=== PATIENT | male | born 1995 | race Caucasian/White ===

== ENCOUNTER 2017-09-26 01:08 | Emergency (ER) | payer SELFPAY ==
[2017-09-26] MEDS ORDERED: ceFAZolin 1 GM VIAL(*) 1 GM in NS 0.9% 50 ML* 50 ML IVPB ONE (02:18)
[2017-09-26] MEDS ORDERED: Tetan/Diph/Pertus SYR(Tdap)* 0.5 ML SYR(BOOSTRIX) use SYR IM ONE (02:21)
--- NOTE | 2017-09-26 02:27 | ED ---
Laceration/Wound HPI - HPI Summary HPI Summary: 22M presents with right hand laceration today. He punched a window and sustained a laceration to the ulnar aspect of his hand and small laceration with potential foreign body to palmar aspect of right hand. He is left handed. 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 He denies any numbness or tingling. He is not able to fully extend pinky finger. Area continues to bleed. he has previous dislocation of pinky there so has deformity at baseline. Has had some ETOH tonight. - History of Current Complaint Stated Complaint: RT HAND LACS Time Seen by Provider: 09/26/17 02:15 Pain Intensity: 0 - Allergy/Home Medications Allergies/Adverse Reactions: Allergies Allergy/AdvReac Type Severity Reaction Status Date / Time No Known Allergies Allergy Verified 09/26/17 02:20 PMH/Surg Hx/FS Hx/Imm Hx Endocrine/Hematology History: Denies: Hx Anticoagulant Therapy Cardiovascular History: Denies: Hx Hypertension Infectious Disease History: Yes Infectious Disease History: Denies: Traveled Outside the [place] in Last 30 Days - Family History Known Family History: Negative: Diabetes - Social History Alcohol Use: Weekly Substance Use Type: Reports: None Smoking Status (MU): Never Smoked Tobacco Review of Systems Negative: Fever Negative: Chest Pain Negative: Shortness Of Breath Positive: Edema - right hand Positive: Other - laceration right hand All Other Systems Reviewed And Are Negative: Yes Physical Exam Triage Information Reviewed: Yes Vital Signs On Initial Exam: Initial Vitals Temp Pulse Resp BP Pulse Ox 98.3 F 86 18 126/72 99 09/26/17 01:15 09/26/17 01:15 09/26/17 01:15 09/26/17 01:15 09/26/17 01:15 Vital Signs Reviewed: Yes Completion Of Physical Exam Limited Due To: Level 5 Appearance: Positive: Well-Appearing Skin: Positive: Warm, Dry, Other - 1cm laceration palm of right hand, 6cm by 3cm by 3/4cm deep laceration of lateral ulnar aspect of right hand that continues to bleed Head/Face: Positive: Normal Head/Face Inspection Eyes: Positive: Normal, Conjunctiva Clear Respiratory/Lung Sounds: Positive: Clear to Auscultation, Breath Sounds Present Cardiovascular: Positive: Normal, RRR Musculoskeletal: Positive: Strength/ROM Intact - unable to full extend right pinky finger, Other - capillary refill<2 secs, sensation grossly intact, Neurological: Positive: Normal - Luda Coma Scale Coma Scale Total: 15 Diagnostics - Vital Signs Vital Signs Temp Pulse Resp BP Pulse Ox 09/26/17 01:15 98.3 F 86 18 126/72 99 - Laboratory Result Diagrams: 09/26/17 02:25 Lab Statement: Any lab studies that have been ordered have been reviewed, and results considered in the medical decision making process. - Radiology hand Xray Interpretation: No Acute Changes - no fx, potential foreign body in middle of palmar aspect of hand Radiology Interpretation Completed By: ED Physician Laceration Repair Course/Dx - Course Course Of Treatment: 22M presents with right hand laceration today. He punched a window and sustained a laceration to the ulnar aspect of his hand and small laceration with potential foreign body to palmar aspect of right hand. He is left handed. 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 He denies any numbness or tingling. He is not able to fully extend Area continues to bleed. he has previous dislocation of pinky there so has deformity at baseline. on exam has large clot in wound with potential tendon visualized. has 5cm by 3cm laceration near right pinky. 1cm laceration on palmar aspect of hand. xray read no fracture. had dr cardenas examine patient and see recommends calling ortho. dr cardenas called ortho and dr kim is in to evaulate patient. patient signed out to dr cardenas pending laceration repair by dr kim. gave tetanus and dose of ancef. - Differential Dx Differental Diagnoses: Abrasion, Avulsion, Laceration - Clinical Impression Provider Diagnoses: Injury of right hand, Laceration of right hand Discharge - Discharge Plan Condition: Good Disposition: OTHER Discharge Disposition Comment: signed out to dr cardenas pending laceration repair
[2017-09-26 02:54] LABS: Hematocrit 44 % (42-52); Hemoglobin 14.8 g/dl (14.0-18.0); Mean Corpuscular HGB Conc 34 g/dl (31-36); Mean Corpuscular Hemoglobin 28 pg (27-31); Mean Corpuscular Volume 84 fL (80-94); Mean Platelet Volume 9 um3 (7.4-10.4); Red Cell Distribution Width 13 % (10.5-15); White Blood Count 7.9 10^3/ul (3.5-10.8)
[2017-09-26 03:11] LABS: Albumin 4.8 g/dL (3.2-5.2); BUN/Creatinine Ratio 16.7 (8-20); Calcium 9.7 mg/dL (8.6-10.3); EGFR African American 128.4 (>60); EGFR Non-African American 99.9 (>60); Globulin 2.6 g/dL (2-4); Potassium 3.5 mmol/L (3.5-5.0); Total Bilirubin 0.4 mg/dL (0.2-1.0); Total Protein 7.4 g/dL (6.4-8.9)
[2017-09-26] MEDS ORDERED: Lidocain 1% EPI 1:100,000 * 30 ML MDV INJ ONE (03:26)
[2017-09-26] MEDS ORDERED: Lidocaine 2% EPI 1:200000 MPF* 20 ML VIAL ONE (03:28)
[2017-09-26 04:49] VITALS: BP 129/69
--- NOTE | 2017-09-26 06:01 | CONS ---
ER CONSULTATION REPORT: DATE OF CONSULT: 09/26/17 - EMERGENCY DEPT. HISTORY OF PRESENT ILLNESS: Wolfgang Hi, age 22, is a left-hand dominant, 22- year-old at [employer]. He was intoxicated and punched his hand through a window. He is in the emergency room with a transverse laceration along his 5th metatarsal base area dorsal ulnar right nondominant hand. The patient is otherwise healthy. He takes methylphenidate. He has no drug allergies. His only previous surgery is an eye strabismus procedure. He denies blood pressure issues, any history of cardiac issues. No asthma. No GI issues. No renal issues. No emotional issues. On examination, Wolfgang is clearly intoxicated, but is awake and able to give me details about his past medical history, although he is vague about the nature of the injury itself, unable to tell me when this happened. He is a healthy- appearing gentleman and otherwise other than the hand laceration, in no acute distress. He is, as stated above, left hand dominant; this is a right hand involved. He has a 5-cm laceration coarsely more or less transversely around the dorsal ulnar hand, roughly at the mid portion of the 5th metatarsal. It courses from about the area of the dorsal fourth metatarsal around to the hypothenar musculature. It is clean. There is no debris. It does not have any exposed bone. The both sides of the flap appeared viable. He is able to extend his fifth digit, but is numb at the ulnar and palmar side of the fifth finger. The radiographs do not show any abnormality of the bone. No foreign body noted. IMPRESSION: Wolfgang has what appears to be a nerve injury to the 5th digit. It appears that the tendons are intact. The wound itself is clean and will be irrigated and closed primarily tonight in the emergency room and splinted and then he will be referred to the hand service for exploration and possible nerve repair electively. [id number]/[facility] #: [id number] CLFIF
--- NOTE | 2017-09-26 07:49 | RAD ---
INDICATION: Multiple lacerations "involving glass" to the right hand COMPARISON: None. TECHNIQUE: 3 views of the right hand were obtained. FINDINGS: The adequately corticated bones are in normal alignment. No significant focal osseous abnormality or fracture is seen. Joint spaces appear maintained. There is no radiographically apparent foreign body in the subcutaneous tissue. IMPRESSION: Normal right hand radiograph. If the patient's symptoms persist, follow-up imaging is recommended.
--- NOTE | 2017-09-26 15:49 | ED ---
I, Charlie Bajwa, scribed for Nishi Gonsalez MD on 09/26/17 at 0234 . Progress - Progress Note Progress Note: 22yo male who presents to ED with right hand laceration after punching glass wall while intoxicated. Pt was seen my Nikkie TOBAR and was signed out at the end of the shift. Exam: Large laceration of7cm x3cm at the mid dorsal lateral aspect on the right hand at the base of the 5th metacarpal. Full flexion intact but unable to fully extend at the PIP joint. Probable tendon visualized in the wound; large area of the clot in the wound; vigorous venous bleeding noted. 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 - Results/Orders Results/Orders: Right Hand XR: No Fx noted. No FB noted. Course/Dx - Course Course Of Treatment: Consulted Dr. Zamora (Ortho) at [address] Zamora will come into ED to evaluate the pt's hand. Dr. Zamora stated nerve damage likely to right hand, but can be repaired and evaluated further electively. Recommends wound closure and ulnar gutter splint and definite f/u with Dr. Vega. Pt sutured and splinted by EKATERINA Diane - Diagnoses Provider Diagnoses: Injury of right hand, Laceration of right hand, Alcohol intoxication - Provider Notifications Discussed Care Of Patient With: Augustus Zamora Time Discussed With Above Provider: 02:35 Instructed by Provider To: Will See In ED The documentation as recorded by the scribeGarett Benjamin accurately reflects the service I personally performed and the decisions made by me, Nishi Gonsalez MD.
== END 2017-09-26 04:48 | disposition home or self-care (01) ==
LOC: ED 01:08
DX: S69.91XA Unspecified injury of right wrist, hand and finger(s), initial encounter (principal); S61.411A Laceration without foreign body of right hand, initial encounter; F10.129 Alcohol abuse with intoxication, unspecified; W22.01XA Walked into wall, initial encounter; Y93.9 Activity, unspecified; Y92.9 Unspecified place or not applicable
CPT/HCPCS: 36415; 80053; 85025; 85610; 85730; 90715; 96372; 99283; J0690

== ENCOUNTER → 2017-10-01 10:29 | Day surgery (SDC) | payer OTHER ==
[~2017-10-01 10:29] MED LIST: Buffered Lidocaine 0.9% SYRIN* 5 ML/SYR SYRINGE INTRADERM ONE; Buffered Lidocaine 0.9% SYRIN* 5 ML/SYR SYRINGE ONE; Bupivacaine 0.25% SDV* 30 ML ONE; Dexamethasone IV* 4 MG/ML 1 ML (4 MG) IV SLOW PU ONE; Dexamethasone IV* 4 MG/ML 1 ML (4 MG) ONE; Famotidine IV* 10 MG/ML 2 ML (20 mg) IV ONE; Famotidine IV* 10 MG/ML 2 ML (20 mg) ONE; HYDROcodone/ACETAMIN 5-325 MG* 1 TAB PO PRN; Ketorolac INJ* 30 MG/ML 1 ML VIAL ONE; Lidocaine 2% PF * 5 ML VIAL ONE; Midazolam* 1 MG/ML 5 ML VIAL (5 MG) ONE; Ondansetron INJ* 2 MG/ML VIAL ONE; PROCHLORPERAZINE INJ 5 MG/ML 2 ML VIAL IV PRN; Propofol* 10 MG/ML 20 ML BTL IV PUSH ONE; ceFAZolin 2 GM PREMIX (*) 2 GM/50 ML BAG IVPB ONE; fentaNYL* 50 MCG/ML 2 ML VIAL (100 MCG VIAL) ONE; oxyCODONE/Acetamin 5/325 MG* TAB ONE
[2017-10-01] MEDS: fentaNYL* 50 MCG/ML 2 ML VIAL (100 MCG VIAL) IV PRN ×2 (17:01→17:25)
[2017-10-01] MEDS: oxyCODONE/Acetamin 5/325 MG* TAB PO PRN ×2 (17:03→17:04)
[2017-10-01 19:55] VITALS: BP 132/82
--- NOTE | 2017-10-02 05:04 | OP ---
DATE OF OPERATION: 10/01/17 [facility] DATE OF : 89 SURGEON: Augustus Vega MD BALLISTICS PROFESSOR: EKATERINA Bird. An assistant quality manager was needed for the case to aid in retraction and positioning of the arm. ANESTHESIOLOGIST: Dr. Collins. ANESTHESIA: General. PRE-OP DIAGNOSIS: Deep penetrating wound, right ulnar hand. POST-OP DIAGNOSIS: Deep penetrating wound, right ulnar hand with retained glass. OPERATIVE PROCEDURES: 1. Exploration of penetrating wound, right hand. 2. Irrigation and debridement of skin, subcutaneous tissue, and fascia and muscle. 3. Removal of foreign body (glass). INDICATIONS: Wolfgang is 22. He lacerated deeply the right ulnar side of his hand when he went through a window. He was seen in the emergency room and closed loosely by my partner. There was some concern for nerve and tendon injury. When I saw him in the office, he had intact sensation, but it clearly was abnormal and he was able to fire his intrinsics and cross his fingers, but it was very weak compared to the contralateral side. I had talked to him about exploring the ulnar nerve and repairing the potential partial laceration and potentially placing a nerve wrap. He had wanted to proceed. ESTIMATED BLOOD LOSS: 5 mL. COMPLICATIONS: None. FINDINGS: The ulnar nerve was a little contused, but intact and not lacerated. The extensor and flexor tendons were similarly intact. The hypothenar muscle was transected down to the bone ulnarly. This was not repairable. There was some retained glass in the wound. DESCRIPTION OF PROCEDURE: Wolfgang was seen in the preoperative holding area. The correct site, side, and procedure were identified. He came back to the operating room. The arm was prepped and draped in the usual fashion. A time- out was performed. I began by extending the volar margin of the traumatic wound proximally and lined with the pisiform and FCU tendon. Dissection was carried down, the fascia was opened just on the radial side of the FCU. The ulnar nerve vascular bundle was identified. The ulnar nerve was identified proximally in a healthy bed of tissue. This was then traced out distally until it branched and became the deep branch of the ulnar nerve and the digital sensory nerves. These were all intact. There was some contusion on the nerve and some hemorrhagic areas in Guyon's canal, but nothing was lacerated. The flexor tendons of the small finger were intact. I went ahead and debrided off the frayed and ragged skin edges and debrided the subcutaneous tissue and muscle fibers and fascia where the hypothenar muscles have been transected. I then turned the head over and extended the traumatic wound over the dorsal hand. I went ahead and inspected the extensor tendons. The 5th dorsal compartment extensor tendons were intact. It had gone distal just enough to avoid the 6th dorsal compartment ECU tendon. I went ahead and irrigated and debrided out this wound. There was a couple of pieces of glass that were removed. The wound was again irrigated, the skin was closed with 4-0 nylon suture. The area was infiltrated with 0.25% plain Marcaine. Wound was dressed with Xeroform, 4x4, sterile Webril, and a cockup wrist splint was applied. He was taken to the recovery room in stable condition. Tourniquet had been used throughout the case. [id number]/[facility] #: [id number] CLIFF
== END | disposition home or self-care (01) ==
LOC: OR 10:29
PROVIDERS: ATTEND Orthopaedic Surgery Hand Surgery
DX: S61.441A Puncture wound with foreign body of right hand, initial encounter (principal); W25.XXXA Contact with sharp glass, initial encounter; Y92.9 Unspecified place or not applicable; F17.200 Nicotine dependence, unspecified, uncomplicated
CPT/HCPCS: 88300; A9270-GY; J0690; J1100; J1885; J2250; J2405; J2704; J3010

== ENCOUNTER 2018-10-29 10:40 | Emergency (ER) | payer OTHER ==
--- NOTE | 2018-10-29 11:05 | ED ---
Laceration/Wound HPI - HPI Summary HPI Summary: Patient is a 23-year-old male who presents emergency department for laceration to right middle digit of hand that occurred just prior to arrival. Patient states he was cutting an avocado when the knife slipped and cut the tip of his third finger. Patient has no past medical history. Immunizations are up-to- date. Patient states the wound has been bleeding profusely. Symptoms are mild in severity. No current modifying factors. - History of Current Complaint Stated Complaint: FINGER LAC Time Seen by Provider: 10/29/18 11:03 Hx Obtained From: Patient Pain Intensity: 6 - Allergy/Home Medications Allergies/Adverse Reactions: Allergies Allergy/AdvReac Type Severity Reaction Status Date / Time No Known Allergies Allergy Verified 10/01/17 12:06 PMH/Surg Hx/FS Hx/Imm Hx Previously Healthy: Yes Endocrine/Hematology History: Denies: Hx Anticoagulant Therapy Cardiovascular History: Denies: Hx Hypertension Sensory History: Reports: Hx Contacts or Glasses - INSTRUCTS GIVEN Denies: Hx Hearing Aid Opthamlomology History: Reports: Hx Contacts or Glasses - INSTRUCTS GIVEN Neurological History: Reports: Hx Migraine - MONTHLY- TREATS WITH EXCEDRIN - Surgical History Surgery Procedure, Year, and Place: CORREECTION OF LAZY EYE AROUND 8 YEARS AGO Hx Anesthesia Reactions: No Infectious Disease History: No Infectious Disease History: Denies: Traveled Outside the [place] in Last 30 Days - Family History Known Family History: Positive: Non-Contributory Negative: Diabetes - Social History Occupation: Student Lives: Dormitory/Roommates Alcohol Use: Weekly Alcohol Amount: 5 DRINKS PER WEEK Substance Use Type: Reports: None Smoking Status (MU): Former Smoker Amount Used/How Often: CHEWING TOBACCO X 1-2 YEARS Have You Smoked in the Last Year: No Review of Systems Positive: Other - laceration to 3rd digit of left hand All Other Systems Reviewed And Are Negative: Yes Physical Exam Triage Information Reviewed: Yes Vital Signs On Initial Exam: Initial Vitals Temp Pulse Resp BP Pulse Ox 98.4 F 94 18 136/77 100 10/29/18 10:49 10/29/18 10:49 10/29/18 10:49 10/29/18 10:49 10/29/18 10:49 Vital Signs Reviewed: Yes Appearance: Positive: Well-Appearing - Pt. sitting on bed in NAD. Bandage on right 3rd digit saturated in blood. Skin: Positive: Warm, Dry Head/Face: Positive: Normal Head/Face Inspection Eyes: Positive: Normal, EOMI Neck: Positive: Supple Musculoskeletal: Positive: Other - Small but deep avulsion to the distal nailbed of 3rd digit of right hand. Moderate active bleeding. Neurological: Positive: Normal, CN Intact II-III Psychiatric: Positive: Affect/Mood Appropriate Diagnostics - Vital Signs Vital Signs Temp Pulse Resp BP Pulse Ox 10/29/18 10:49 98.4 F 94 18 136/77 100 - Laboratory Lab Statement: Any lab studies that have been ordered have been reviewed, and results considered in the medical decision making process. Laceration Repair Course/Dx - Course Course Of Treatment: Patient with small deep avulsion to distal nailbed of third digit of hand. Wound was irrigated and cleaned. Surgicel and pressure dressing were placed. Patient elevated arm. Patient observed for about an hour. On reexamination bleeding has mostly stopped. There is a small amount of ooze coming from tip of finger. Pressure dressing was re-applied. Patient comfortable being discharged home at this time. Advised to keep dressing in place until tomorrow. Finger splint was given to wear to protect wound. Advised to keep wound clean and dry. To follow[facility]up with [facility] for wound check. Advised to apply pressure and elevate if bleeding returns. Can also ice. To return to the ER for profuse unstoppable bleeding. Patient understands and agrees with plan. - Differential Dx Differental Diagnoses: Abrasion, Laceration, Puncture Wound - Clinical Impression Provider Diagnoses: Nail avulsion, finger Discharge - Sign-Out/Discharge Documenting (check all that apply): Patient Departure - Discharge Plan Condition: Improved Disposition: HOME Patient Education Materials: Nail Avulsion (ED) Referrals: [facility] [Primary Care Provider] - Additional Instructions: Follow up with [facility] Keep compression dressing in place Hold pressure to wound if bleeding returns Keep wound clean and dry Return to ER if symptoms change or worsen - Billing Disposition and Condition Condition: IMPROVED Disposition: Home
[2018-10-29 13:23] VITALS: BP 117/74
== END 2018-10-29 13:15 | disposition home or self-care (01) ==
LOC: ED 10:40
DX: S61.213A Laceration without foreign body of left middle finger without damage to nail, initial encounter (principal); S61.302A Unspecified open wound of right middle finger with damage to nail, initial encounter; W26.0XXA Contact with knife, initial encounter; Y92.9 Unspecified place or not applicable; Z87.891 Personal history of nicotine dependence
CPT/HCPCS: 99282

== ENCOUNTER 2018-10-30 09:39 | Emergency (ER) | payer OTHER ==
[2018-10-30] MEDS ORDERED: Silver Nitrate/Potassium Nitr* 1 EA STICK TOPICAL ONE (09:54)
[2018-10-30] MEDS ORDERED: Lidocaine 1% INJ* 10 MG/ML 30 ML SDV INJ ONE (09:54)
[2018-10-30] MEDS ORDERED: Lidocaine 2% EPI 1:200000 MPF*10-20 ML VIAL ONE (09:58)
[2018-10-30] MEDS ORDERED: Lidocaine 1%* 5 ML VIAL ONE (09:59)
--- NOTE | 2018-10-30 10:00 | ED ---
Laceration/Wound HPI - HPI Summary HPI Summary: 23 year old male presents to the ED with a finger avulsion. He was treated in ED yesterday after slicing finger with knife while cutting an avocado. The wound was dressed with surgicel and gauze, patient was given instructions to change bandage this morning. patient states when he tried to change the dressing he noted a significant amount of blood and it was very painful which prompted him to return to the ED. He rates his pain as and 8/10. He is not currently on any medication. Denies numbness and states he is able to move finger with pain. - History of Current Complaint Stated Complaint: RIGHT HAND INJURY Time Seen by Provider: 10/30/18 09:46 Hx Obtained From: Patient Mechanism of Injury: Sharp/Blunt Trauma Onset/Duration: Sudden Onset, Still Present Aggravating: Movement Alleviating: Compression Timing: Constant Onset Severity: Severe Current Severity: Severe Pain Intensity: 8 Pain Scale Used: 0-10 Numeric Associated Signs & Symptoms: Negative - Allergy/Home Medications Allergies/Adverse Reactions: Allergies Allergy/AdvReac Type Severity Reaction Status Date / Time No Known Allergies Allergy Verified 10/01/17 12:06 PMH/Surg Hx/FS Hx/Imm Hx Previously Healthy: Yes Endocrine/Hematology History: Denies: Hx Anticoagulant Therapy Cardiovascular History: Denies: Hx Hypertension Sensory History: Reports: Hx Contacts or Glasses - INSTRUCTS GIVEN Denies: Hx Hearing Aid Opthamlomology History: Reports: Hx Contacts or Glasses - INSTRUCTS GIVEN Neurological History: Reports: Hx Migraine - MONTHLY- TREATS WITH EXCEDRIN - Surgical History Surgery Procedure, Year, and Place: CORREECTION OF LAZY EYE AROUND 8 YEARS AGO Hx Anesthesia Reactions: No Infectious Disease History: No Infectious Disease History: Denies: Traveled Outside the [place] in Last 30 Days - Family History Known Family History: Positive: Non-Contributory Negative: Diabetes - Social History Alcohol Use: Weekly Alcohol Amount: 5 DRINKS PER WEEK Substance Use Type: Reports: None Smoking Status (MU): Former Smoker Amount Used/How Often: CHEWING TOBACCO X 1-2 YEARS Have You Smoked in the Last Year: No Review of Systems Constitutional: Negative Eyes: Negative ENT: Negative Positive: Other - continuous bleeding of finger laceration. Positive: Other - continuous bleeding of right middle finger, finger laceration. Neurological: Negative Psychological: Normal All Other Systems Reviewed And Are Negative: Yes Physical Exam Vital Signs On Initial Exam: Initial Vitals Temp Pulse Resp BP Pulse Ox 99.3 F 89 18 139/76 100 10/30/18 09:42 12 09:42 12 09:42 12 09:42 12 09:42 Appearance: Positive: Well-Nourished, Pain Distress Skin: Positive: Warm, Skin Color Reflects Adequate Perfusion, Other - right middle finger has an avusion 1cm by1/2cm at the distal phalynx that has an arteriole bleed. Eyes: Positive: Normal ENT: Positive: Hearing grossly normal Musculoskeletal: Positive: Limited @ - right middle finger secondary to pain Neurological: Positive: Normal Psychiatric: Positive: Normal AVPU Assessment: Alert Procedures - Procedure Summary Procedure Summary: Patient presents with finger avulsion and continuous bleeding of the middle right finger. The wound was washed with normal saline. A digital block of the right middle finger was placed using 1% lidocaine without epi. A tourniquet was placed on the finger and bleeding decreased. Cauterization was performed using silver nitrate, hemostasis was not achieved. Electrical cauterization was performed and hemostasis was achieved. The wound was dressed using surgicel, xeroform, tefla, gauze and coban. Diagnostics - Vital Signs Vital Signs Temp Pulse Resp BP Pulse Ox 10/30/18 09:42 99.3 F 89 18 139/76 100 - Laboratory Lab Statement: Any lab studies that have been ordered have been reviewed, and results considered in the medical decision making process. Re-Evaluation - Re-Evaluation First Eval Re-Evaluation Time: 11:21 Comment: no active bleeding noted through dressing Laceration Repair Course/Dx - Course Course Of Treatment: 23 year old otherwise healthy male presents with continued bleeding of an avulsion of his right middle finger. Patient was seen in ED yesterday and a dressing was placed. This morning when attempting to remove the dressing as instructed the wound started bleeding extensively. A digital nerve block was placed in the affected finger using 1% lidocaine. The wound was cleaned with normal saline. Cauterization was attempted with silver nitrate, which failed. Electric cauterization was sucessful. The wound was dressed with surgicel, xeroform, tefla, gauze, and coban. Patient was prescribed prophylactic keflex. Patient instructed to leave dressing intact and dry for 48 hours. When changing dressing, patient instructed to leave surgicel in place. Patient told to follow up with [facility]. Tylenol as needed for pain. Patient given return to ED instructions. Patient demonstrates understanding and is agreeable to plan. - Differential Dx Differental Diagnoses: Abrasion, Avulsion, Laceration - Clinical Impression Provider Diagnoses: Finger avulsion Discharge - Sign-Out/Discharge Documenting (check all that apply): Patient Departure - Discharge Plan Condition: Good Disposition: HOME Prescriptions: Cephalexin CAP* [Keflex CAP*] 500 mg PO BID #10 cap Patient Education Materials: Skin Avulsion (ED) Referrals: Aramis Dodge MD [Medical Doctor] - [facility] [Primary Care Provider] - Additional Instructions: Keep area in pressure dressing for 48 hours, after 48 hours check for sign of infection leaving absorbable hemostat on wound and rewrap with pressure dressing for another 24 hours Keep area covered after 48 hours take keflex twice a day for 5 days Follow up with primary within 5 days Return to ED if develop any signs of infection such as fever, spreading redness , or pus formation or if bleed through pressure dressing or any new or worsening symptoms - Billing Disposition and Condition Condition: GOOD Disposition: Home
[2018-10-30 12:30] VITALS: BP 123/68
== END 2018-10-30 12:29 | disposition home or self-care (01) ==
LOC: ED 09:39
DX: S61.212A Laceration without foreign body of right middle finger without damage to nail, initial encounter (principal); W26.0XXA Contact with knife, initial encounter; Y93.G1 Activity, food preparation and clean up; Y92.9 Unspecified place or not applicable; Z87.891 Personal history of nicotine dependence
CPT/HCPCS: 99282; A9270-GY